=== PATIENT | female | born 1955 | race Caucasian/White ===

== ENCOUNTER → 2017-01-23 | Outpatient (CLI) | payer BC ==
--- NOTE | 2017-01-23 10:07 | RAD ---
DATE: 01/23/2017 EXAM: DIGITAL SCREEN BILAT W/CAD HISTORY: Routine screening COMPARISON: 12/27/2015, 12/26/2014 This study was interpreted with the benefit of Computerized Aided Detection (CAD). The breast parenchyma shows scattered fibroglandular densities. Breast parenchyma level B. FINDINGS: There is a 6 x 4 mm nodule now evident at approximately the 10:00 location in the right breast. This was not clearly visible on older studies. No other new or enlarging breast densities are seen. Minimal benign type calcifications are present. Benign-appearing lymph node type densities in the left axillary region are unchanged. IMPRESSION: Small right breast nodule as described above. Spot compression diagnostic mammograms and right breast ultrasound are suggested for further evaluation. BI-RADS CATEGORY: 0 INCOMPLETE: NEEDS ADDITIONAL IMAGING EVALUATION AND/OR PRIOR MAMMOGRAMS FOR COMPARISON. RECOMMENDED FOLLOW-UP: ADD ADDITIONAL IMAGING PQRS compliance statement: Patient information was entered into a reminder system with a target due date for the next mammogram. Mammography is a sensitive method for finding small breast cancers, but it does not detect them all and is not a substitute for careful clinical examination. A negative mammogram does not negate a clinically suspicious finding and should not result in delay in biopsying a clinically suspicious abnormality. "Our facility is accredited by the [employer] Mammography Program."
== END | disposition home or self-care (01) ==
LOC: MAMMO 07:48
PROVIDERS: ATTEND Obstetrics & Gynecology
DX: Z12.31 Encounter for screening mammogram for malignant neoplasm of breast (principal)
CPT/HCPCS: G0202; 77067

== ENCOUNTER → 2017-01-30 | Outpatient (CLI) | payer BC ==
--- NOTE | 2017-01-30 11:16 | RAD ---
DATE: 01/30/2017 EXAM: DIGITAL DIAGNOSTIC RT, BREAST RIGHT HISTORY: Suspicious screening study COMPARISON: 01/23/2017 This study was interpreted with the benefit of Computerized Aided Detection (CAD). The breast parenchyma shows scattered fibroglandular densities. Breast parenchyma level B. FINDINGS: Additional spot compression and straight mediolateral views of the area of suspicion in the right breast were performed and correlated with the screening images. They confirm the presence of a smooth 5 mm nodule at the 10:00 location in the right breast. No associated microcalcifications are seen. Right breast ultrasound, 01/30/2017: A targeted ultrasound exam of the right breast was performed at the 10:00 location. There is a 4.4 mm oval-shaped hypoechoic nodule present at the 10:00 location. It demonstrates faint low level internal echoes. There is no significant posterior acoustic enhancement or shadowing. Its margins are probably smooth. This appears to correspond to the mammographic abnormality. This is probably a small complicated cyst. No other abnormality is seen in this region. IMPRESSION: Probable small complicated cyst at the 10:00 location. Follow-up consisting of right breast ultrasound in 6 months and bilateral mammography at one year is suggested to confirm that this is a benign process. BI-RADS CATEGORY: 3 PROBABLY BENIGN FINDING(S)-SHORT INTERVAL FOLLOW-UP SUGGESTED RECOMMENDED FOLLOW-UP: 6M 6 MONTH FOLLOW-UP PQRS compliance statement: Patient information was entered into a reminder system with a target due date for the next mammogram. Mammography is a sensitive method for finding small breast cancers, but it does not detect them all and is not a substitute for careful clinical examination. A negative mammogram does not negate a clinically suspicious finding and should not result in delay in biopsying a clinically suspicious abnormality. "Our facility is accredited by the [employer] Mammography Program."
== END | disposition home or self-care (01) ==
LOC: MAMMO 09:47
PROVIDERS: ATTEND Obstetrics & Gynecology
DX: R92.8 Other abnormal and inconclusive findings on diagnostic imaging of breast (principal)
CPT/HCPCS: 76641; G0206; 77065

== ENCOUNTER → 2017-09-11 | Outpatient (CLI) | payer BC ==
--- NOTE | 2017-09-11 11:42 | RAD ---
Right breast ultrasound, 09/11/2017: History: Follow-up breast nodule A targeted ultrasound exam of the lateral aspect of the right breast was performed in the area where a small nodule was seen on the the 01/30/2017 exam. On today's exam this nodule appears to lie closer to the 9:00 location within the 10:00 location, approximately 6 cm from the nipple. These slight differences in estimated location are not unexpected on a technical basis. This nodule measures 4 mm with smooth margins. There are low level internal echoes without significant posterior acoustic enhancement or shadowing. This is probably a tiny complicated cyst. It is unchanged in size. No new abnormality is seen in this region. IMPRESSION: Unchanged small nodule in the lateral right breast which is probably a complicated cyst. Follow-up bilateral mammography in 6 months is suggested. BI-RADS 3-probably benign findings
== END | disposition home or self-care (01) ==
LOC: MAMMO 09:45
PROVIDERS: ATTEND Obstetrics & Gynecology
DX: R92.8 Other abnormal and inconclusive findings on diagnostic imaging of breast (principal)
CPT/HCPCS: 76641